=== PATIENT | female | born 1985 | race Hispanic/Latino ===

== ENCOUNTER 2019-03-09 14:00 | Inpatient (IN) | payer BC ==
[~2019-03-09 14:00] MED LIST: Calcium Chloride 1 GM/10 ML Abboject SYRINGE ONE; Dexamethasone 20 MG/5 ML VIAL ONE; Glycopyrrolate 0.4 MG/ 2 ML VIAL ONE; Lidocaine 1% PF 5 ML VIAL ONE; Ondansetron PF 4 MG/2 ML Vial ONE; PHENYLEPHRINE-NS 100 MCG/ML 10 ML SYRINGE ONE; PROPOFOL 200 MG/20 ML VIAL ONE; Rocuronium Bromide 10 MG/ML (10ML VIAL) ONE; Succinylcholine Chloride 20 MG/ML 10 ml SYRINGE FS ONE; diphenhydrAMINE 50 MG/ML VIAL ONE
[2019-03-09] MEDS ORDERED: Ondansetron PF 4 MG/2 ML Vial IVP PRN ×2 (14:24→18:11)
[2019-03-09] MEDS ORDERED: hydrALAZINE 20 MG/ML VIAL SLOW IVP PRN ×2 (14:24→20:42)
[2019-03-09] MEDS ORDERED: Promethazine HCl 25 MG/ML VIAL IM PRN ×2 (14:24→18:11)
[2019-03-09] MEDS ORDERED: CEFAZOLIN 2 GM in Premix Bag 1 BAG IVPB SCH (14:30)
[2019-03-09] MEDS: Lactated Ringer's 1,000 ML IV SCH (14:30)
[2019-03-09] MEDS ORDERED: Bicitra 30 ML UDCUP PO SCH (14:30)
[2019-03-09 14:42] VITALS: BMI 27.6
[2019-03-09 14:55] LABS: Hemoglobin 12.7 g/dL (12.0-16.0); Mean Corpuscular HGB CONC 35.5 g/dL (32.0-36.0); Mean Corpuscular Hemoglobin 33.3 pg (27.0-31.0); Mean Corpuscular Volume 93.8 fL (78.0-98.0); Mean Platelet Volume 8.5 fL (7.4-10.4); Platelet Count 184 thou/uL (130-400); RBC Distribution Width 11.7 % (11.5-14.5); Red Blood Cell (RBC) Count 3.83 mill/uL (4.20-5.40); White Blood Cell (WBC) Count 14.1 thou/uL (4.8-10.8)
[2019-03-09 15:32] LABS: HBSAg Index 0.16 S/CO (0-0.99); Hep B Surf Ag Non-Reactive S/CO (NonReactive)
[2019-03-09 15:34] LABS: Syphilis Antibody Nonreactive (Nonreactive); Syphilis Antibody Index 0.05 S/CO (<1.00 Non-Reactive)
[2019-03-09] MEDS ORDERED: MORPHINE 5 MG/10 ML PF VIAL ONE (16:11)
[2019-03-09] MEDS ORDERED: Oxytocin 10 UNITS/ML VIAL ONE ×2 (16:12→17:39)
[2019-03-09] MEDS ORDERED: Ondansetron PF 4 MG/2 ML Vial ONE (16:12)
[2019-03-09] MEDS ORDERED: PHENYLEPHRINE-NS 100 MCG/ML 10 ML SYRINGE ONE (16:12)
[2019-03-09] MEDS ORDERED: ePHEDrine/0.9% NaCl/PF SYRINGE 50 mg/10 ml ONE (16:12)
[2019-03-09] MEDS ORDERED: Ondansetron HCl/PF 4 MG/2 ML Vial IVP PRN (18:11)
[2019-03-09] MEDS ORDERED: HYDROmorphone 2 MG/ML VIAL SLOW IVP PRN (18:11)
[2019-03-09] MEDS ORDERED: Naloxone HCl 0.4 mg/ml Vial IVP PRN ×2 (18:11)
[2019-03-09] MEDS ORDERED: Naloxone HCl 0.4 mg/ml Vial IV PRN (18:11)
[2019-03-09] MEDS ORDERED: Meperidine HCl/PF 25 MG/ML VIAL SLOW IVP PRN (18:11)
[2019-03-09] MEDS ORDERED: L&D-Morphine 4 MG/ML VIAL SLOW IVP PRN (18:11)
[2019-03-09] MEDS ORDERED: Promethazine HCl 25 MG SUPP PR PRN (18:11)
[2019-03-09] MEDS ORDERED: diphenhydrAMINE 50 MG/ML VIAL IVP PRN (18:11)
[2019-03-09] MEDS ORDERED: Communication Order-Pharmacy FS SCH (18:15)
[2019-03-09] MEDS ORDERED: Ketorolac Tromethamine 30 MG/ML VIAL IVP SCH (18:15)
[2019-03-09] MEDS ORDERED: Ketorolac Tromethamine 30 MG/ML VIAL ONE (19:25)
[2019-03-09] MEDS: Ketorolac Tromethamine 30 MG/ML VIAL IVP PRN (19:28)
[2019-03-09] MEDS ORDERED: NS / Oxytocin 40 units/1000ml 1,000 ML IV SCH (20:42)
[2019-03-09] MEDS ORDERED: Lanolin Ointment 7 GM TUBE TOP PRN (20:42)
[2019-03-09] MEDS: Docusate Calcium (SURFAK) 240 MG CAP PO SCH (22:59)
[2019-03-09] MEDS: Ferrous Sulfate 325 MG TAB PO SCH (23:01)
[2019-03-10] MEDS: Ketorolac Tromethamine 30 MG/ML VIAL IVP PRN ×2 (01:52→08:55)
[2019-03-10] MEDS: Lactated Ringer's 1,000 ML IV SCH (01:53)
[2019-03-10 05:38] LABS: Hemoglobin 10.3 g/dL (12.0-16.0); Mean Corpuscular HGB CONC 34.8 g/dL (32.0-36.0); Mean Corpuscular Hemoglobin 32.8 pg (27.0-31.0); Mean Corpuscular Volume 94.3 fL (78.0-98.0); Mean Platelet Volume 8.3 fL (7.4-10.4); Platelet Count 152 thou/uL (130-400); RBC Distribution Width 11.8 % (11.5-14.5); Red Blood Cell (RBC) Count 3.14 mill/uL (4.20-5.40); White Blood Cell (WBC) Count 9.7 thou/uL (4.8-10.8)
[2019-03-10] MEDS ORDERED: HYDROcodone/Acetaminophen 5/325 mg Tablet PO PRN (06:15)
[2019-03-10] MEDS: Simethicone Chewable 80 MG TAB PO PRN ×3 (08:57→21:02)
[2019-03-10] MEDS: Prenatal Vitamin 1 TAB PO SCH (08:57)
[2019-03-10] MEDS: Docusate Calcium (SURFAK) 240 MG CAP PO SCH ×2 (08:57→21:02)
[2019-03-10] MEDS ORDERED: Adacel (T-DAP) 0.5 ML SYRINGE IM ONE (09:00)
[2019-03-10] MEDS: Ibuprofen 800 MG TAB PO SCH ×2 (13:23→21:02)
[2019-03-10] MEDS: HYDROcodone/Acetaminophen 5/325 mg Tablet PO PRN ×2 (17:36→22:08)
[2019-03-10] MEDS: Ferrous Sulfate 325 MG TAB PO SCH (22:56)
[2019-03-11] MEDS: Ferrous Sulfate 325 MG TAB PO SCH ×2 (00:01→09:29)
[2019-03-11] MEDS: Ibuprofen 800 MG TAB PO SCH ×2 (05:25→14:03)
[2019-03-11] MEDS: HYDROcodone/Acetaminophen 5/325 mg Tablet PO PRN ×2 (05:25→11:11)
[2019-03-11] MEDS: Simethicone Chewable 80 MG TAB PO PRN (05:30)
[2019-03-11] MEDS: Prenatal Vitamin 1 TAB PO SCH (09:29)
[2019-03-11] MEDS: Docusate Calcium (SURFAK) 240 MG CAP PO SCH (09:29)
--- NOTE | 2019-03-11 13:57 | OP ---
DATE OF PROCEDURE: 03/09/2019 RESIDENT SURGEON: Rylee Huynh DO PROCEDURE PERFORMED: Primary low-transverse section. PREOPERATIVE DIAGNOSES: 1. Term intrauterine . 2. Oligohydramnios. 3. Breech presentation. 4. Grade 3 placenta POSTOPERATIVE DIAGNOSES: 1. Term intrauterine , delivered. 2. Oligohydramnios. 3. Breech presentation. 4. Grade 3 placenta ANESTHESIA: Spinal. INDICATIONS: This is a 33-year-old G3, P 1-0-1-1, 38.6 weeks gestation, who presents for a primary low-transverse section for breech presentation and oligohydramnios. PROCEDURE IN DETAIL: After risks, benefits, and alternatives were explained to the patient, she gave informed consent. Preoperative antibiotics included cefazolin 2 g IV. The patient was taken to the operating room, where spinal anesthesia was initiated. She was placed in a supine position with left tilt, prepped and draped in the usual sterile fashion. A Pfannenstiel incision was made with a scalpel and carried down to the level of the fascia, which was sharply nicked. The fascial cut was extended bilaterally with Ly scissors. The inferior and superior edges of the fascial edges were elevated with Kylie clamps. Underlying rectus muscles were sharply and bluntly dissected free. The recti were divided digitally and retracted manually. The peritoneum was entered bluntly and retracted manually. Bladder blade was placed. Bladder flap was created with Metzenbaum scissors. A low transverse score was made with a scalpel and the uterus was entered in the midline with a scalpel. Clear fluid was seen. Hysterotomy was extended manually. was noted to be in kimberly breech presentation and delivered in usual breech fashion. Mouth and nares were bulb suctioned. Cord was clamped and cut and grossly normal male infant was handed to awaiting nurse. Cord blood was collected. Placenta was manually extracted, found to be intact with 3-vessel cord and sent to the pathology. The uterus was externalized and endometrium was curetted with a dry lap. The bladder blade was replaced. The uterus was closed with a running locking #1 chromic suture followed by an imbricating non-locking layer using #1 chromic. Blader flap was reapproximated using 2-0 monocryl. Seprafilm was placed on uterus. The uterus was internalized. The hysterotomy was again noted to be hemostatic. The peritoneum was closed with 2-0 Vicryl. The rectus muscles were brought together using 2-0 Vicryl and chromic. The fascia was closed with a running nonlocking 0 Vicryl suture. The subcutaneous tissue was irrigated and bleeders were cauterized. The subcutaneous tissue was brought together using 2-0 plain gut. Skin was approximated with 4-0 Monocryl. Dermabond was placed. All counts were correct. The patient tolerated the procedure well and was taken to recovery room in stable condition. QUANTITATIVE BLOOD LOSS: 425 mL. COMPLICATIONS: None. SPECIMENS: Cord blood sent to lab for blood type. FINDINGS: Grossly normal male infant with Apgars 9 and 9 at one and five minutes respectively. Grossly normal placenta with 3-vessel cord. DRAINS: Uriarte to gravity, draining clear urine. Job ID: [id number] MTDD
--- NOTE | 2019-03-11 14:17 | OP ---
DATE OF PROCEDURE: 03/09/2019 Resident SURGEON: Rylee Huynh DO PREOPERATIVE DIAGNOSES: 1. Term intrauterine at 38-6/7 weeks. 2. Kimberly breech presentation. 3. Oligohydramnios. 4. Grade 3 placenta. 5. Decreased movement. POSTOPERATIVE DIAGNOSES: 1. Term intrauterine at 38-6/7 weeks. 2. Kimberly breech presentation. 3. Oligohydramnios. 4. Grade 3 placenta. 5. Decreased movement. PROCEDURE PERFORMED: Primary low-transverse section. ANESTHESIA: Spinal catheterization. FINDINGS: 1. Decreased movement with non-reassuring testing. 2. Oligohydramnios with amniotic fluid index less than 5. 3. Grade 3 placenta. 4. Biophysical profile 08/14. 5. Kimberly breech presentation. 6. Viable male , 6 pounds 13 ounces. Apgars 9 and 9. 7. Normal uterus, tubes, and ovaries. COMPLICATIONS: None. SPECIMENS REMOVED: Cord blood. ESTIMATED BLOOD LOSS: Less than 500 mL (QBL 465 mL). HISTORY AND INDICATIONS: Ms. Kathleen Núñez is a very pleasant 33-year-old [place] female, 3, para 1-0-1-1, who is followed in my clinic for obstetric care. Kathleen had been followed closely for breech presentation with an advanced grade placenta and progressive decrease in amniotic fluid. She was being seen twice weekly with testing. She presented to the office on the afternoon of 03/09/2019 at 38-6/7 weeks. Ultrasound revealed persistent kimberly breech presentation with an CITLALI less than 5 cm and advanced grade 3 placenta. Kathleen noted there was a decrease in movement and there was no interval growth over the past week. For this reason, decision was made to proceed with primary delivery as outlined. The patient was sent to Labor and Delivery for monitoring. She was admitted and surgical disclosures were signed and placed in the chart. Prior to proceeding with the procedure, questions were answered to the patient and family's satisfaction. DESCRIPTION OF PROCEDURE: After thorough consent and counseling, Ms. Núñez was taken to operating room and adequate level of anesthesia was obtained via spinal catheterization. The patient was prepped and draped in the usual sterile fashion for abdominal surgery. A Uriarte was placed in the bladder, which drained clear urine. A team time-out was performed per protocol. Attention was then turned to performing the primary low-transverse section. A Pfannenstiel incision was made and carried sharply to the fascia, which was also sharply incised. The midline was identified. The rectus muscles were retracted laterally. The abdominoperitoneal cavity was entered with usual safeguards carried out. A retractor was placed and a bladder flap was created on the vesicouterine peritoneum. A bladder blade was then placed. A low transverse incision was made on the well-developed lower uterine segment. Upon entering the amniotic sac, scant amount of clear amniotic fluid was visualized. The infant was noted to be kimberly breech presentation. The breech was carefully delivered in an atraumatic fashion. Using the Mauriceau maneuver, shoulders and after coming head were then delivered. The cord was doubly clamped and cut. The infant was handed to the neonatology team in attendance for the delivery. Cord blood was obtained. The placenta was manually removed from the uterus. Because of oligohydramnios and grade 3 placenta, placenta was sent to Pathology. The uterine cavity was cleared of any remaining clot and fluid. The low-transverse incision was closed in a running locking ligature of #1 chromic. A 2nd imbricating layer was placed to facilitate strengthening hemostasis. The vesicouterine peritoneum was reapproximated to the lower segment with a running ligature of 2-0 Monocryl suture. The posterior cul-de-sac and gutters were cleared of clot and fluid. Seprafilm was applied to the low-transverse incision and to the anterior aspect of the uterus for adhesion prevention. The incision was carefully inspected and noted to be hemostatic. Uterus, fallopian tubes, and ovaries were normal in appearance. Lap, sponge, and needle counts were correct after the uterus was returned to the abdomen. The peritoneum was closed in a running ligature of 2-0 Vicryl. The rectus muscles were reapproximated in midline with interrupted ligatures of 2-0 Vicryl and #1 chromic suture. The fascia was then closed with 2 ligatures of 0 Vicryl suture, which were tied in the midline. Good fascial integrity was appreciated. The incision was irrigated with copious amount of warm normal saline. Hemostasis was obtained with Bovie cauterization. The subcutaneous tissue was closed with interrupted ligatures of 2-0 plain. The skin was closed with subcuticular stitch of 4-0 Monocryl. A pressure dressing and ice packs were subsequently placed. Lap, sponge, and needle counts were correct x4. Estimated blood loss during the surgical procedure was less than 500 mL. The patient was taken to recovery room in good condition. Immediately following surgery, the patient and family were made aware of the surgical procedure and operative findings. Questions answered to their satisfaction. Job ID: [id number] MTDD
[2019-03-11 14:21] VITALS: BP 105/65; TEMP 98.2
== END 2019-03-11 17:00 | disposition home or self-care (01) | DRG 787 ==
LOC: L&D 14:00 → 3SW 20:51
PROVIDERS: ADMIT Obstetrics & Gynecology; ATTEND Obstetrics & Gynecology
PROC: 10D00Z1 Extraction of Products of Conception, Low, Open Approach (ICD-10-PCS; principal; 2019-03-11)
DX: O32.1XX0 Maternal care for breech presentation, not applicable or unspecified (principal); O41.03X0 Oligohydramnios, third trimester, not applicable or unspecified; O99.824 Streptococcus B carrier state complicating childbirth; O36.8190 Decreased fetal movements, unspecified trimester, not applicable or unspecified; Z3A.38 38 weeks gestation of pregnancy; Z37.0 Single live birth
CPT/HCPCS: 36415; 51702; 85027; 86780; 86850; 86900; 86901; 87340; 88307; J1100; J1200; J1885; J2001; J2274; J2405; J2590; J2704